=== PATIENT | male | born 1940 | race Caucasian/White ===

== ENCOUNTER 2017-11-16 07:06 | Outpatient (CLI) | payer MEDICARE, OTHER ==
[~2017-11-16] VITALS: Ht 172.7 cm; Wt 68.2 kg
--- NOTE | ~2017-11-16 | HEMODYNAMI ---
PATIENT:GILL CHURCH MEDICAL RECORD: [id number] : 40 LOCATION:DOH ADMISSION DATE: 11/16/17 Generatedon:11/16/20179:15 Patient name: GILL CHURCH Patient #: [id number] SSN: DO B: 1940 Date of study: 11/16/2017 Page: Of Hemodynamic Procedure Report Patient Data Patient Demographics Procedure consent was obtained First Name: GILL Gender: Male Last Name: LYNNETTE : 1940 Patient #: [id number] Age: 77 year(s) Race: Unknown Additional ID: [id number] Contact details Address: [address] [place] [address] State: [place] City: [place] Zip code: [address] Past Medical History Allergies: No known allergies Admission Admission Data Admission Date: 11/16/2017 Admission Time: 7:06 Lab Results Lab Result Date: 11/16/2017 Lab Result Time: 0:00 Biochemistry Name Units Result Min Max BUN mg/dl 21 --(----)-* 7 18 Creatinine mg/dl 1.4 --(----)*- 0.6 1.3 CBC Name Units Result Min Max Hemoglobin g/dl 12.2 *-(----)-- 13.5 17.5 Procedure Procedure Types Cath Procedure Diagnostic Procedure [facility] w/Coronaries PCI Procedure Coronary Stent Coronary Stent Initial Coronary Stent Additional Procedure Description Procedure Date Procedure Date: 11/16/2017 Procedure Start Time: 8:51 Procedure End Time: 9:14 Procedure Staff Name Function Casey Sanders MD Performing Physician Freda Alejandro RT Scrub Keven Tijerina RN Nurse Forest Gray RT Monitor Procedure Data Cath Procedure Fluoroscopy Diagnostic fluoroscopy Total fluoroscopy Time: 7.1 time: 7.1 min min Diagnostic fluoroscopy Total fluoroscopy dose: 815 dose: 815 mGy mGy Contrast Material Contrast Material Type Amount (ml) Isovue 300 132 Entry Location Entry Primary Successful Side Size Upsize Upsize Entry Closure Nj ccessful Closure Location (Fr) 1 (Fr) 2 (Fr) Remarks Device Remarks Radial Right 6 Fr Mechanical artery Short Compression Estimated blood loss: 20 ml Diagnostic catheters Device Type Used For End Catheter Placement DIAGNOSTIC [place] 110cm 5 Procedure Fr catheter ([id number]) Procedure Medications Medication Administration Route Dosage 0.9% NaCl I.V. 100 ml/hr Oxygen etCO2 Nasal cannula 2 l/min Heparin Flush Bag added to field 2 bags (1000units/500ml NS) Lidocaine 2% added to field 20 Radial Cocktail added to field 1 syringe (Verapomil 2mg/Nitro 400mcg/Heparin 1500units) Versed I.V. 1 mg Fentanyl I.V. 50 mcg Versed I.V. 0.5 mg Fentanyl I.V. 25 mcg Radial Cocktail I.A. 1 syringe (Verapomil 2mg/Nitro 400mcg/Heparin 1500units) Heparin Bolus I.V. 4000 units Integrilin (Bolus I.V. 6.2 ml 2mg/ml) Integrilin (Bolus wasted 3.8 ml 2mg/ml) Versed I.V. 0.5 mg Fentanyl I.V. 25 mcg Plavix P.O. 600 mg Hemodynamics Rest HGB: 12.2 (g/dl) Heart Rate: 56 (bpm) Pressure Samples Time Site Value (mmHg) Purpose Heart Use Rate(bpm) 8:54 LV 152/-26,-23 Snapshot 76 Snapshots Pre Cath Intra NCS Post Cath Vital Signs Time Heart Resp SPO2 etCO2 NIBP Rhythm Pain Sedation Rate (ipm) (%) (mmHg) (mmHg) Status Level (bpm) 8:29:51 70 17 99 115/73(94) NSR 0 (11) 10(A) , No pain 8:34:29 67 18 100 29.8 110/72(94) NSR 0 (11) 10(A) , No pain 8:39:08 67 20 100 20.9 118/71(88) NSR 0 (11) 10(A) , No pain 8:43:46 66 15 99 32.8 105/66(86) NSR 0 (11) 10(A) , No pain 8:48:23 66 13 100 0 109/65(79) NSR 0 (11) 10(A) , No pain 8:52:59 64 16 99 32.8 103/59(74) NSR 0 (11) 9(A) , No pain 8:57:36 68 13 98 26.1 99/57(81) NSR 0 (11) 9(A) , No pain 9:02:12 67 15 96 33.6 101/52(77) NSR 0 (11) 9(A) , No pain 9:06:49 65 14 97 0 97/50(68) NSR 0 (11) 10(A) , No pain 9:11:26 67 15 98 20.9 96/44(73) NSR 0 (11) 10(A) , No pain Medications Time Medication Route Dose Verified Delivered Reason Note s Effectiveness by by 8:34:58 0.9% NaCl I.V. 100 Keven Keven Per physician ml/hr Lilliana Tijerina RN RN 8:35:13 Oxygen etCO2 2 l/min Keven Keven Per physician Nasal Lilliana Tijerina cannula RN RN 8:35:24 Heparin Flush added 2 bags Keven Keven used for Bag to Lilliana Tijerina procedure (1000units/500ml field RN RN NS) 8:35:42 Lidocaine 2% added 20ml Keven Keven for local to vial Lorrosy Tijerina anesthetic RN RN 8:36:02 Radial Cocktail added 1 Keven Casey for (Verapomil to syringe Lilliana Sanders MD vasodilation 2mg/Nitro field RN 400mcg/Heparin 1500units) 8:50:12 Versed I.V. 1 mg Keven Keven for sedation Lilliana Tijerina RN RN 8:50:20 Fentanyl I.V. 50 mcg Keven Keven for sedation Lilliana Tijerina RN RN 8:51:18 Radial Cocktail I.A. 1 Keven Casey for (Verapomil syringe Lilliana Sanders MD vasodilation 2mg/Nitro RN 400mcg/Heparin 1500units) 8:53:32 Versed I.V. 0.5 mg Keven Keven for sedation Lilliana Tijerina RN RN 8:54:01 Fentanyl I.V. 25 mcg Keven Keven for sedation Lilliana Tijerina RN RN 9:00:24 Heparin Bolus I.V. 4000 Keven Keven for units Lilliana barnes RN RN 9:00:50 Integrilin I.V. 6.2 ml Keven Keven for (Bolus 2mg/ml) Lorigan Lorigan antiplatelet RN RN therapy 9:01:03 Integrilin wasted 3.8ml Keven Keven to sharp's (Bolus 2mg/ml) Lilliana Tijerina RN RN 9:03:17 Versed I.V. 0.5 mg Keven Keven for sedation Lilliana Tijerina RN RN 9:03:23 Fentanyl I.V. 25 mcg Keven Keven for sedation Lilliana Tijerina RN, RN 9:09:16 Plavix P.O. 600 mg Keven Peña for Lilliana Sanders MD antiplatelet RN therapy Procedure Log Time Note 8:18:55 Freda Counts RT(R) sent for patient. Start room use. 8:18:56 Time tracking: Regular hours (M-F 7:00 - 5:00) 8:19:00 Plan of Care:Hemodynamics will remain stable., Cardiac rhythm will remain stable., Comfort level will be maintained., Respiratory function will remain adequate., Patient/ family verbilizes understanding of procedure., Procedure tolerated without complication., Recovers from procedure without complications.. 8:23:45 Patient received from Pre/Post Procedure Room to CCL 1 Alert and oriented. Tansferred to table in Supine position. 8:23:46 Warm blankets applied, and daniel hugger turned on for patient comfort. 8:23:46 Correct patient and procedure confirmed by team. 8:23:48 Signed procedure consent form obtained from patient. 8:23:48 ECG and BP/O2 sat monitors applied to patient. 8:23:49 Full Disclosure recording started 8:28:58 Vital chart was started 8:29:04 Baseline sample Acquired. 8:29:08 Baseline sample Acquired. 8:29:12 Baseline sample Acquired. 8:29:20 Rhythm: atrial fibrillation 8:29:34 H&P Date Dictated: 11/10/2017 Within 30 days and on chart., H&P Addendum completed by physician on day of procedure. (MUST COMPLETE FOR ALL OUTPATIENTS). 8:29:36 Pre-procedure instructions explained to patient. 8:29:37 Pre-op teaching completed and patient verbalized understanding. 8:29:38 Family in waiting room. 8:29:39 Patient NPO since Midnight. 8:29:44 Patient allergic to No known allergies 8:29:47 Is the patient allergic to Iodine/contrast media? No. 8:29:53 Is patient on blood thinner?No 8:34:58 0.9% NaCl 100 ml/hr I.V. was administered by Keven Tijerina RN; Per physician; 8:35:13 Oxygen 2 l/min etCO2 Nasal cannula was administered by Keven Tijerina RN; Per physician; 8:35:24 Heparin Flush Bag (1000units/500ml NS) 2 bags added to field was administered by Keven Tijerina RN; used for procedure; 8:35:42 Lidocaine 2% 20ml vial added to field was administered by Keven Tijerina RN; for local anesthetic; 8:36:02 Radial Cocktail (Verapomil 2mg/Nitro 400mcg/Heparin 1500units) 1 syringe added to field was administered by Casey Sanders MD; for vasodilation; 8:37:56 Patient diabetic? No. 8:37:59 ----Pre-sedation anethsthesia assessment.---- 8:38:06 Previous problem with sedation/anesthesia? No ? 8:38:09 Snore? Yes 8:38:11 Sleep apnea? No 8:38:13 Deviated septum? No 8:38:15 Opens mouth fully? Yes 8:38:16 Sticks out tongue? Yes 8:38:18 Airway obstruction? No ? 8:38:21 Dentures? No ? 8:38:30 Pre procedure: right dorsailis pedis pulse 2+ Normal; easily identifiable; not easily obliterated 8:38:40 Modified Markell's test Ulnar < 7 seconds 8:38:44 Patient pain scale 0/10 ?. 8:38:53 IV patent on arrival in left wrist with 0.9% NaCl at [facility]. 8:42:53 Lab Result : BUN 21 mg/dl 8:42:53 Lab Result : Creatinine 1.4 mg/dl 8:42:53 Lab Result : Hemoglobin 12.2 g/dl 8:43:07 Lab results completed and on chart. 8:43:14 Right Radial & Right Groin area was prepped with chlora-prep and draped in sterile fashion 8:43:16 Alarms reviewed by R. N. 8:43:16 Sharps counted by scrub and verified by R.N. 8:43:18 Sharps counted by scrub and verified by R.N. 8:43:24 Use device set Radial Dx or PCI 8:43:26 ACIST Syringe (91305) opened to sterile field. 8:43:26 Medline Cath Pack ([id number]) opened to sterile field. 8:43:28 Bag Decanter (2002) opened to sterile field. 8:43:32 DIAGNOSTIC WIRE .035 260cm J wire (527340) opened to sterile field. 8:43:33 ACIST Hand Control (93957) opened to sterile field. 8:43:34 ACIST Manifold (99474) opened to sterile field. 8:43:35 Tegaderm 4 x 4 (1626W) opened to sterile field. 8:44:07 MBrace Wrist Support ([id number]) opened to sterile field. 8:44:19 Zero performed for pressure channel P1 8:48:35 Physician paged 8:48:40 Physician arrived 8:48:40 --------ALL STOP TIME OUT------ 8:48:41 Final Timeout: patient, procedure, and site verified with staff and physician. All members of the team are in agreement. 8:48:45 Right Radial & Right Groin site verified by team. 8:48:52 Physical assessment completed. ASA score P 2 - A patient with mild systemic disease as per Casey Sanders MD. 8:49:00 Sedation plan: IV Moderate Sedation Medication:Versed, Fentanyl 8:49:58 Baseline sample Acquired. 8:50:12 Versed 1 mg I.V. was administered by Keven Tijerina RN; for sedation; 8:50:20 Fentanyl 50 mcg I.V. was administered by Keven Tijerina RN; for sedation; 8:51:18 Radial Cocktail (Verapomil 2mg/Nitro 400mcg/Heparin 1500units) 1 syringe I.A. was administered by Casey Sanders MD; for vasodilation; 8:51:44 Procedure started. 8:51:57 Local anesthetic to right radial artery with Lidocaine 2% by Casey Sanders MD.INITIAL ACCESS ONLY 8:52:15 SHEATH 6Fr Prelude Radial ([id number]) opened to sterile field. 8:52:33 A 6 Fr Short sheath was inserted into the Right Radial artery 8:52:53 A DIAGNOSTIC [place] 110cm 5 Fr catheter (059322) was advanced over the wire and used for Procedure. 8:53:32 Versed 0.5 mg I.V. was administered by Keven Tijerina RN; for sedation; 8:54:01 Fentanyl 25 mcg I.V. was administered by Keven Tijerina RN; for sedation; 8:54:06 LV hemodynamics recorded. 8:54:12 LV gram done using SMITH 8:54:20 EF : 60 % 8:54:48 RCA angiography performed. 8:55:26 Catheter removed. 8:55:37 INFLATOR Merit BasixCompak (TU3746) opened to sterile field. 8:56:08 GUIDE 6FR XBLAD 3.5 catheter (86160020) opened to sterile field. 8:56:43 6 Fr XBLAD 3.5 guide catheter was inserted over the wire 8:57:14 LCA angiography performed. 8:57:20 Proceeding to intervention. 8:58:03 CHOICE PT Extra Support 182cm wire ([id number]) opened to sterile field. 8:59:02 CHOICE wire advanced. 8:59:12 LAD 9:00:24 Heparin Bolus 4000 units I.V. was administered by Keven Tijerina RN; for anticoagulation; 9:00:43 Wire advanced across lesion. 9:00:50 Integrilin (Bolus 2mg/ml) 6.2 ml I.V. was administered by Keven Tijerina RN; for antiplatelet therapy; 9:01:03 Integrilin (Bolus 2mg/ml) 3.8ml wasted was administered by Keven Tijerina RN; to sharp's; 9:02:08 The SHAMAR RX 2.5 x 38 stent ([id number]) was advanced then removed because of failure to cross lesion 9:03:11 Inflate balloon Inflation number: 1 A EUPHORA 2.5 x 30 Balloon ([id number]) was prepped and advanced across the Mid LAD, then inflated to 17 CORTNEY for 0:10 (min:sec). 9:03:17 Versed 0.5 mg I.V. was administered by Keven Tijerina RN; for sedation; 9:03:23 Fentanyl 25 mcg I.V. was administered by Keven Tijerina RN; for sedation; 9:03:32 Inflation number: 2 The EUPHORA 2.5 x 30 Balloon ([id number]) was reinflated across the Mid LAD, to 17 CORTNEY for 0:10 (min:sec). 9:04:04 Balloon removed over the wire. 9:04:55 Place stent Inflation Number: 3 A SHAMAR RX 2.5 x 38 stent ([id number]) was prepped and advanced across the Mid LAD. The stent was deployed at 17 CORTNEY for 0:10 (min:sec). 9:05:59 Stent catheter was removed intact over wire. 9:06:10 Wire redirected to DIAGONAL. 9:07:37 Place stent Inflation Number: 1 A SHAMAR RX 2.5 x 08 stent ([id number]) was prepped and advanced across the 1st Diag. The stent was deployed at 17 CORTNEY for 0:10 (min:sec). 9:08:06 Stent catheter was removed intact over wire. 9:08:09 Wire removed. 9:08:10 Guide catheter removed. 9:09:15 Procedure type changed to Cath procedure, Diagnostic procedure, LHC, LHC w/Coronaries, PCI procedure, Coronary Stent, Coronary Stent Initial, Coronary Stent Additional 9:09:16 Plavix 600 mg P.O. was administered by Casey Sanders MD; for antiplatelet therapy; 9:09:56 TR BAND Standard ([id number]) opened to sterile field. 9:10:19 Sheath removed intact; hemostasis achieved with Mechanical Compression to the Right Radial artery. 9:10:34 Procedure ended.(Physican Out) 9:10:44 Fluoroscopy time 07.10 minutes. 9:10:52 Flurop Dose total: 815 9:10:52 Fluoroscopy dose: 815 mGy 9:10:59 Contrast amount:Isovue 300 132ml. 9:11:02 Sharps counted by scrub and verified by R.N. 9:11:36 TR band inflated with 11cc of air. 9:11:39 Insertion/operative site no bleeding no hematoma. 9:12:00 Post right radial artery:stable 9:12:08 Post Procedure Pulses reassessed and unchanged 9:12:15 Post procedure: right dorsailis pedis pulse 2+ Normal; easily identifiable; not easily obliterated. 9:12:20 Post-procedure physical assessment completed. ASA score P 2 - A patient with mild systemic disease as per Casey Sanders MD. 9:12:25 Post procedure rhythm: sinus rhythm 9:12:31 Estimated blood loss: 20 ml 9:12:34 Post procedure instruction explained to patient.Patient verbalizes understanding. 9:12:35 Patient needs reinforcement of post procedure teaching. 9:12:37 Procedure and supply charges have been captured, reviewed, submitted and are correct. 9:13:51 Vital chart was stopped 9:13:52 See physician's report for complete and final results. 9:13:53 Report given to Pre/Post Procedure Room. 9:13:57 Patient transfered to Pre/Post Procedure Room with Stretcher. 9:14:01 Procedure ended. 9:14:01 Full Disclosure recording stopped 9:14:53 End room use (Document Last) Intervention Summary Intervention Notes Time ActionType Lesion and Equipment Used Action# Pressure Duration Attributes 9:02:08 Discard SHAMAR RX 2.5 x Stent 38 stent ([id number]) 9:03:11 Inflate Mid LAD EUPHORA 2.5 x 1 17 00:10 balloon 30 Balloon ([id number]) 9:03:32 Reinflate Mid LAD EUPHORA 2.5 x 2 17 00:10 balloon 30 Balloon ([id number]) 9:04:55 Place stent Mid LAD SHAMAR RX 2.5 x 3 17 00:10 38 stent ([id number]) 9:07:37 Place stent 1st Diag SHAMAR RX 2.5 x 1 17 00:10 08 stent ([id number]) Device Usage Item Name Manufacture Quantity Catalog Number Hospital Part Current Minimal Lot# / Charge Number Stock Stock Serial# Code ACIST Syringe Acist 1 93105 175664 860263 546135 20 (28302) Medical Systems Inc Medline Cath Cardinal 1 [id number] 367000 77789 833310 5 Pack Health ([id number]) Bag Decanter Microtek 1 2001S 823269 89045 027342 5 (2001S) Medical Inc. DIAGNOSTIC WIRE St Hol[place] 1 430026 095463 475054 748701 30 .035 260cm J wire (073980) ACIST Hand Acist 1 17929 745818 410501 993817 5 Control (19008) Medical Systems Inc ACIST Manifold Acist 1 79468 805925 193548 330537 5 (73395) Medical Systems Inc Tegaderm 4 x 4 3M 1 1626W 192630 344431 615916 5 (1626W) MBrace Wrist Advanced 1 140-0250-00 632045 87936 009929 5 Support Vascular ([id number]) Dynamics SHEATH 6Fr Merit 1 [id number] 250318 101078 937377 5 Prelude Radial Medical ([id number]) DIAGNOSTIC Terumo 1 40-4833 730140 960330 751486 5 [place] 110cm 5 Fr catheter (086694) INFLATOR Merit Merit 1 YM5808 087083 808387 393874 15 BasixCynvec Medical (OD2128) GUIDE 6FR XBLAD Cardinal 1 [id number] 432813 198731 007109 10 3.5 catheter Health (72594000) CHOICE PT Extra [place] 1 [id number] 801900 533800 518643 5 Support 182cm Scientific wire (2142423P6) SHAMAR RX 2.5 x Medtronic 1 [id number] 331875 4149792 663578 5 [id number] 38 stent ([id number]) EUPHORA 2.5 x Medtronic 1 [id number] 525283 776673 078832 5 30 Balloon ([id number]) SHAMAR RX 2.5 x Medtronic 1 [id number] 822460 1269753 053695 5 [id number] 08 stent ([id number]) TR BAND Terumo 1 [id number] 064760 439043 651348 40 Standard ([id number]) Signature [place]it [place] Stage Time Signature Unsigned Intra-Procedure 11/16/2017 Forest Gray 9:15:21 AM RT(R) (CV) Signatures Monitor : Forest Gray RT Signature : Date : Time : [facility] [address] [place] [address]
--- NOTE | ~2017-11-16 | OP ---
PATIENT NAME: GILL CHURCH MEDICAL RECORD: [id number] :40 LOCATION:D.CAT ADMISSION DATE: SURGEON: YANIQUE FINLEY MD DATE OF OPERATION: 11/16/2017 PROCEDURES: 1. PTCA stent LAD. 2. PTCA stent LAD diagonal. 3. Left heart catheterization. 4. Selective coronary angiography. 5. Left ventriculogram. INDICATION: Angina and coronary artery disease. PROCEDURE IN DETAIL: After informed consent was obtained and after a detailed description of risks, benefits as well as alternative therapies, the patient elected to proceed with angiogram and angioplasty. The right radial area was prepped and draped in normal sterile fashion. Right radial artery was cannulated via modified negative with placement of 6-Montserratian sheath. All catheters exchanged through this sheath. FINDINGS: The left ventriculogram was performed in standard 30-degree SMITH view, reveals good cardiac wall motion throughout all segments. Overall ejection fraction estimated 60%. SELECTIVE CORONARY ANGIOGRAPHY: 1. Left main is with no significant angiographic disease. 2. Left anterior descending has 90% stenosis of the diagonal, 95% stenosis of the LAD itself. 3. Left circumflex has moderate irregularities, but no flow-limiting stenosis. 4. Right coronary artery has at least 80% stenosis with pressure damping at the ostium. PTCA STENT OF THE LAD AND LAD DIAGONAL: The LAD was addressed with a 2.5 x 38 mm [place], the diagonal with a 2.5 x 8 mm [place]. Result was 0% residual stenosis. OVERALL IMPRESSION: Successful percutaneous transluminal coronary angioplasty stent of the left anterior descending and diagonal, both going from 90% to 95% initial stenosis to 0% residual. TRANSINT:[id number] Voice Confirmation ID: [id number] DOCUMENT ID: [id number] YANIQUE FINLEY MD at 0956 CC: [id number] DICTATION DATE: 11/16/17 09 CONSTRUCTION CREW MEMBER: 11/16/17 1320 DEP CLI 11/16/[address] [address]
[2017-11-16] MEDS ORDERED: AMBIEN10 MG PO (07:18)
[2017-11-16] MEDS ORDERED: NORVASC5 MG PO (07:18)
[2017-11-16] MEDS ORDERED: XANAX0.25 MG PO (07:18)
[2017-11-16] MEDS ORDERED: HYDROCODONE-APA1 TAB PO (07:18)
[2017-11-16] MEDS ORDERED: CORDARONE200 MG PO (07:19)
[2017-11-16 07:31] VITALS: BP 115/68; Ht 172.7 cm; Wt 68.2 kg
[2017-11-16 07:48] LABS: BASOPHILS 0.7 % (0-2); EOSINOPHILS 3.4 % (0-7); HEMATOCRIT 35.2 % (42.0-54.0); HEMOGLOBIN 12.2 g/dL (13.5-17.5); IMMATURE GRANULOCYTES 0.2 % (0-5); LYMPHOCYTES 15.1 % (15-50); MCH 32.3 pg (26.0-34.0); MCHC 34.7 g/dL (31.0-37.0); MCV 93.1 fL (80.0-100.0); MONOCYTES 17.1 % (2-11); NEUTROPHILS 63.5 % (40-80); PLATELET COUNT 209 10x3/uL (130-400); RBC 3.78 10x6/uL (4.20-6.10)
[2017-11-16 07:55] LABS: ANION GAP 12.4 mmol/L (8-16); CALCIUM 8.6 mg/dL (8.5-10.1); CARBON DIOXIDE 26.7 mmol/L (21.0-32.0); CREATININE - SERUM 1.4 mg/dL (0.6-1.3); POTASSIUM - SERUM 4.1 mmol/L (3.5-5.1)
[2017-11-16] MEDS ORDERED: PLAVIX75 MG PO (09:40)
[2017-11-16] MEDS ORDERED: BAYER CHEWABLE81 MG PO (09:41)
[2017-11-16] MEDS ORDERED: PRAVACHOL40 MG PO (10:41)
== END 2017-11-16 13:30 | disposition home or self-care (01) ==
LOC: D.CATH 07:06
PROVIDERS: Internal Medicine Interventional Cardiology
DX: I25.119 Atherosclerotic heart disease of native coronary artery with unspecified angina pectoris (principal); Z01.812 Encounter for preprocedural laboratory examination
CPT/HCPCS: 93458; C9600; C9601

== ENCOUNTER 2017-11-22 07:02 | Outpatient (CLI) | payer MEDICARE, OTHER ==
[~2017-11-22] VITALS: Ht 172.7 cm; Wt 68.2 kg
--- NOTE | ~2017-11-22 | HP ---
PATIENT: GILL CHURCH MEDICAL RECORD: [id number] ACCOUNT: [id number] LOCATION:YOSEPH : 40 ADMISSION DATE: 11/22/17 HISTORY AND PHYSICAL EXAMINATION ADMITTING DIAGNOSES: 1. Angina. 2. Coronary artery disease. 3. Recent percutaneous transluminal coronary angioplasty stent of LAD diagonal with concomitant disease RCA ostium. 4. Hyperlipidemia. 5. Hypertension. HISTORY OF PRESENT ILLNESS: Mr. Church presents with anginal symptomatology, found to have 2-vessel coronary artery disease of the LAD, diagonal, and RCA, underwent successful PTCA stent of the LAD and LAD diagonal, now brought back for PTCA stent of the RCA. REVIEW OF SYSTEMS: The patient reports easy bruising but reports no swollen glands. The patient reports no fever, no night sweats, no significant weight gain, no significant weight loss. No significant exercise tolerance. The patient reports no dry eyes, no irritation, no vision change. Patient reports no difficulty hearing and no ear pain. Patient reports no frequent nose bleeds or nose and sinus problems. Patient reports on arm pain on exertion. No shortness of breath while lying down. No history of heart murmur. Patient reports no cough, no wheezing or coughing up blood. Patient reports no abdominal pain, no vomiting. Normal appetite. No diarrhea and not vomiting blood. No nausea and no constipation. Patient reports no incontinence. No difficulty urinating. No hematuria. No increased frequency. Patient reports no muscle aches. No weakness, no arthralgias, no back pain. No swelling of the extremities. Patient reports no abnormal mole, no jaundice, no rashes. Reports no loss of consciousness. No weakness and no numbness. No seizures, dizziness, or headaches. The patient reports no depression, no sleep disturbance, feeling safe in a relationship and no alcohol abuse. Patient reports on fatigue. Reports no runny nose or sinus pressure. No itching, no hives, and no frequent sneezing. PHYSICAL EXAMINATION: GENERAL APPEARANCE: Well-nourished, well-developed, appears stated age. Level of distress, comfortable. PSYCHIATRIC: Mental status, alert, normal affect. Orientation, oriented to time, place and person. EYES: Lids and conjunctiva, noninjected. No discharge, no pallor. ENT: Lips, teeth, gums, normal dentition. Oropharynx, no cyanosis, no pallor. NECK: Carotid arteries, bilateral normal upstroke, no bruits, no thrills. JUGULAR VEINS: No jugular venous pressure or distention. CERVICAL LYMPH NODES: Nontender, nonenlarged. THYROID: Not enlarged. Nontender. No nodules. LUNGS: Respiratory effort, unlabored. CHEST: Normal curvature. No thoracic deformity. No chest wall tenderness. Percussion, resonant. Auscultation, clear. No wheezes, no rales, no rhonchi. CARDIOVASCULAR: Precordial exam, nondisplaced. No heaves or pericardial thrills. Rate and rhythm, regular. Heart sounds, normal S1, normal S2. No S3, no gallop, no rub. Systolic murmur, not heard. Diastolic murmur, not heard. EXTREMITIES: No cyanosis, no edema. Peripheral pulses, full and equal in all HISTORY AND PHYSICAL [id number] [place] extremities, except as noted. No bruits appreciated. ABDOMEN: Soft, nondistended. Normal aorta. No bruit. Nontender. No masses. Liver, nontender, no hepatomegaly. Spleen, nontender, no splenomegaly. MUSCULOSKELETAL: No joint tenderness. No joint swelling. No erythema. NEUROLOGICAL: Normal gait, normal strength, normal tone. SKIN: Warm and dry. OVERALL IMPRESSION: Significant disease of the right coronary artery. We will proceed with percutaneous transluminal coronary angioplasty stent of the right coronary artery. TRANSINT:[id number] Voice Confirmation ID: [id number] DOCUMENT ID: [id number] YANIQUE FINLEY MD at 1351 CC: [id number] DICTATION DATE: 11/22/17929 PASSENGER SERVICE REPRESENTATIVE: 11/22/17 1045 [facility] CLI 11/22/17 [place] [id number] [place] [id number]
--- NOTE | ~2017-11-22 | HEMODYNAMI ---
PATIENT:GILL CHURCH MEDICAL RECORD: [id number] : 40 LOCATION:DOH ADMISSION DATE: 11/22/17 Generatedon:11/22/20179:58 Patient name: GILL CHURCH Patient #: [id number] SSN: [id number] : 1940 Date of study: 11/22/2017 Page: Of Hemodynamic Procedure Report Patient Data Patient Demographics Procedure consent was obtained First Name: GILL Gender: Male Last Name: LYNNETTE : 1940 Patient #: [id number] Age: 77 year(s) Race: Unknown SSN: [id number] Additional ID: [id number] Contact details Address: [address] [place] [address] State: [place] City: [place] Zip code: [address] Past Medical History Allergies: No known allergies Admission Admission Data Admission Date: 11/22/2017 Admission Time: 7:02 Arrival Date: 11/22/2017 Arrival Time: 0:00 Admit Source: Other Insurance Payor: Medicare Lab Results Lab Result Date: 11/16/2017 Lab Result Time: 0:00 Biochemistry Name Units Result Min Max BUN mg/dl 21 --(----)-* 7 18 Creatinine mg/dl 1.4 --(----)*- 0.6 1.3 CBC Name Units Result Min Max Hemoglobin g/dl 12.2 *-(----)-- 13.5 17.5 Procedure Procedure Types Cath Procedure PCI Procedure Coronary Stent Coronary Stent Initial Procedure Description Procedure Date Procedure Date: 11/22/2017 Procedure Start Time: 9:44 Procedure End Time: 9:57 Procedure Staff Name Function Casey Sanders MD Performing Physician Jerri Hinojosa RT Monitor Annie Ridley RT Scrub Denny Herman RN Nurse Procedure Data Cath Procedure Fluoroscopy Diagnostic fluoroscopy Total fluoroscopy Time: 2.6 time: 2.6 min min Diagnostic fluoroscopy Total fluoroscopy dose: 159 dose: 159 mGy mGy Contrast Material Contrast Material Type Amount (ml) Isovue 300 47 Entry Location Entry Primary Successful Side Size Upsize Upsize Entry Closure Nj ccessful Closure Location (Fr) 1 (Fr) 2 (Fr) Remarks Device Remarks Radial Right 6 Fr Mechanical artery Short Compression Estimated blood loss: 10 ml Procedure Complications No complications Procedure Medications Medication Administration Route Dosage Oxygen etCO2 Nasal cannula 2 l/min Heparin Flush Bag added to field 2 bags (1000units/500ml NS) 0.9% NaCl I.V. 100 ml/hr Radial Cocktail added to field 1 syringe (Verapomil 2mg/Nitro 400mcg/Heparin 1500units) Fentanyl I.V. 50 mcg Versed I.V. 1 mg Fentanyl I.V. 50 mcg Versed I.V. 1 mg Radial Cocktail I.A. 1 syringe (Verapomil 2mg/Nitro 400mcg/Heparin 1500units) Heparin Bolus I.V. 4000 units Hemodynamics Rest HGB: 12.2 (g/dl) Heart Rate: 10 (bpm) Snapshots Pre Cath Intra NCS Post Cath Vital Signs Time Heart Resp SPO2 etCO2 NIBP (mmHg) Rhythm Pain Sedation Rate (ipm) (%) (mmHg) Status Level (bpm) 9:18:19 44 18 99 29.2 133/92(105) NSR 0 (11) 10(A) , No pain 9:22:22 43 18 100 28.5 124/95(110) NSR 0 (11) 10(A) , No pain 9:26:28 52 17 98 23.2 117/76(95) NSR 0 (11) 10(A) , No pain 9:30:30 59 15 98 0 121/84(97) NSR 0 (11) 10(A) , No pain 9:34:40 58 14 94 0 114/67(80) NSR 0 (11) 9(A) , No pain 9:38:45 59 17 92 0 112/68(81) NSR 0 (11) 9(A) , No pain 9:42:47 58 16 96 35.2 111/74(85) NSR 0 (11) 9(A) , No pain 9:46:53 61 17 98 34.5 115/67(84) NSR 0 (11) 9(A) , No pain 9:51:07 62 16 97 30 108/62(76) NSR 0 (11) 9(A) , No pain 9:55:13 58 16 98 29.2 105/61(83) NSR 0 (11) 9(A) , No pain Medications Time Medication Route Dose Verified Delivered Reason Note s Effectiveness by by 9:18:09 Oxygen etCO2 2 l/min Casey Baldwin Per physician Nasal Tommy Herman RN cannula 9:18:19 Heparin Flush added 2 bags Casey Baldwin used for Bag to Tommy Herman RN procedure (1000units/500ml field NS) 9:18:28 0.9% NaCl I.V. 100 Casey Baldwin Per physician ml/hr Tommy Herman RN 9:18:45 Radial Cocktail added 1 Casey Baldwin used for (Verapomil to syringe Tommy Herman RN procedure 2mg/Nitro field 400mcg/Heparin 1500units) 9:28:40 Fentanyl I.V. 50 mcg Casey Baldwin for sedation Tommy Herman RN 9:28:46 Versed I.V. 1 mg Casey Baldwin for sedation Tommy Herman RN 9:30:55 Fentanyl I.V. 50 mcg Casey Baldwin for sedation Tommy Herman RN 9:30:59 Versed I.V. 1 mg Casey Baldwin for sedation Tommy Herman RN 9:45:13 Radial Cocktail I.A. 1 Casey Peña for (Verapomil syringe Tommy Sanders MD vasodilation 2mg/Nitro 400mcg/Heparin 1500units) 9:46:05 Heparin Bolus I.V. 4000 Casey Baldwin for units Tommy Herman RN anticoagulation Procedure Log Time Note 8:45:05 Annie Ridley RT(R) sent for patient. Start room use. 8:49:30 Informed consent obtained and on chart 8:49:34 Diagnostic Cath Status : Elective 8:51:06 Time tracking: Regular hours (M-F 7:00 - 5:00) 8:51:10 Plan of Care:Hemodynamics will remain stable., Cardiac rhythm will remain stable., Comfort level will be maintained., Respiratory function will remain adequate., Patient/ family verbilizes understanding of procedure., Procedure tolerated without complication., Recovers from procedure without complications.. 9:08:11 Admit Source: Other 9:08:13 Arrival Date: 11/22/2017 12:00:00 AM 9:08:21 Insurance Payor : Medicare 9:11:41 Patient received from Pre/Post Procedure Room to CCL 2 Alert and oriented. Tansferred to table in Supine position. 9:11:42 Warm blankets applied, and daniel hugger turned on for patient comfort. 9:11:42 Correct patient and procedure confirmed by team. 9:11:44 ECG and BP/O2 sat monitors applied to patient. 9:17:13 Vital chart was started 9:17:14 Baseline sample Acquired. 9:17:17 Rhythm: sinus rhythm 9:17:19 Full Disclosure recording started 9:17:22 H&P Date Dictated: 11/22/2017 Within 30 days and on chart., H&P Addendum completed by physician on day of procedure. (MUST COMPLETE FOR ALL OUTPATIENTS). 9:17:24 Pre-procedure instructions explained to patient. 9:17:24 Pre-op teaching completed and patient verbalized understanding. 9:17:26 Family in waiting room. 9:17:27 Patient NPO since Midnight. 9:17:30 Is the patient allergic to Iodine/contrast media? No. 9:17:31 Was the patient premedicated? No 9:17:32 Is patient on blood thinner?Yes 9:17:34 ACC The patient was administered the following blood thiners within the last 24 hours: ACCPlavix 9:17:36 Patient diabetic? No. 9:17:39 Previous problem with sedation/anesthesia? No ? 9:17:40 Snore? Yes 9:17:41 Sleep apnea? No 9:17:42 Deviated septum? No 9:17:43 Opens mouth fully? Yes 9:17:43 Sticks out tongue? Yes 9:17:45 Airway obstruction? No ? 9:18:09 Oxygen 2 l/min etCO2 Nasal cannula was administered by Denny Herman RN; Per physician; 9:18:09 Dentures? No ? 9:18:12 Pre procedure: right dorsailis pedis pulse 1+ Palpable, but thready & weak; easily obliterated 9:18:14 Pre procedure: left dorsailis pedis pulse 1+ Palpable, but thready & weak; easily obliterated 9:18:15 Patient pain scale 0/10 ?. 9:18:19 Heparin Flush Bag (1000units/500ml NS) 2 bags added to field was administered by Denny Herman RN; used for procedure; 9:18:21 IV patent on arrival in left forearm with 0.9% NaCl at [facility]. 9:18:24 Lab results completed and on chart. 9:18:28 0.9% NaCl 100 ml/hr I.V. was administered by Denny Herman RN; Per physician; 9:18:29 Right Radial & Right Groin area was prepped with chlora-prep and draped in sterile fashion 9:18:30 Alarms reviewed by R. N. 9:18:30 Sharps counted by scrub and verified by R.N. 9:18:45 Radial Cocktail (Verapomil 2mg/Nitro 400mcg/Heparin 1500units) 1 syringe added to field was administered by Denny Herman RN; used for procedure; 9:28:08 Physician arrived 9:28:09 --------ALL STOP TIME OUT------ 9:28:10 Final Timeout: patient, procedure, and site verified with staff and physician. All members of the team are in agreement. 9:28:13 Right Radial & Right Groin site verified by team. 9:28:16 Physical assessment completed. ASA score P 2 - A patient with mild systemic disease as per Casey Sanders MD. 9:28:19 Sedation plan: IV Moderate Sedation Medication:Versed, Fentanyl 9:28:40 Fentanyl 50 mcg I.V. was administered by Denny Herman RN; for sedation; 9::46 Versed 1 mg I.V. was administered by Denny Herman RN; for sedation; 9:30:45 Zero performed for pressure channel P1 9:30:55 Fentanyl 50 mcg I.V. was administered by Denny Herman RN; for sedation; 9:30:59 Versed 1 mg I.V. was administered by Denny Herman RN; for sedation; 9:31:02 Use device set Femoral Dx 9:31:30 SHEATH 6Fr Prelude Radial ([id number]) opened to sterile field. 9:31:35 ACIST Syringe (89526) opened to sterile field. 9:31:36 Bag Decanter (2002S) opened to sterile field. 9:31:37 Medline Cath Pack ([id number]) opened to sterile field. 9:31:38 DIAGNOSTIC WIRE .035 260cm J wire (573035) opened to sterile field. 9:31:40 ACIST Hand Control (82059) opened to sterile field. 9:31:40 ACIST Manifold (34884) opened to sterile field. 9:31:42 Tegaderm 4 x 4 (1626W) opened to sterile field. 9:42:29 Procedure started. 9:44:05 Local anesthetic to right radial artery with Lidocaine 2% by Casey Sanders MD.INITIAL ACCESS ONLY 9:44:38 A 6 Fr Short sheath was inserted into the Right Radial artery 9:45:13 Radial Cocktail (Verapomil 2mg/Nitro 400mcg/Heparin 1500units) 1 syringe I.A. was administered by Casey Sanders MD; for vasodilation; 9:45:59 GUIDE 6FR HS I SH catheter ([id number]) opened to sterile field. 9:46:05 Heparin Bolus 4000 units I.V. was administered by Denny Herman RN; for anticoagulation; 9:46:14 6 Fr HS!SH guide catheter was inserted over the wire 9:47:33 Choice PT extra support wire advanced. 9:48:33 CHOICE PT Extra Support 182cm wire ([id number]) opened to sterile field. 9:49:24 Catheter removed. unable to cannulate vessel. 9:50:51 GUIDE 6FR AR 2.0 SH catheter ([id number]) opened to sterile field. 9:51:16 6 Fr AR2SH guide catheter was inserted over the wire 9:51:24 choice pt ex wire advanced. 9:51:34 Wire advanced across lesion. 9:52:17 Place stent Inflation Number: 1 A SHAMAR RX 4.0 x 12 stent ([id number]) was prepped and advanced across the Prox RCA. The stent was deployed at 17 CORTNEY for 0:12 (min:sec). 9:53:48 TR BAND Standard ([id number]) opened to sterile field. 9:54:03 Wire removed. 9:54:03 Guide catheter removed. 9:54:19 Sheath removed intact; hemostasis achieved with Mechanical Compression to the Right Radial artery. 9:54:32 Fluoroscopy time 02.60 minutes. 9:54:37 Flurop Dose total: 159 9:54:37 Fluoroscopy dose: 159 mGy 9:54:42 Contrast amount:Isovue 300 47ml. 9:54:44 Sharps counted by scrub and verified by R.N. 9:54:47 TR band inflated with 12cc of air. 9:54:59 Procedure ended.(Physican Out) 9:55:45 Post right radial artery:stable 9:55:54 Post-procedure physical assessment completed. ASA score P 2 - A patient with mild systemic disease as per Casey Sanders MD. 9:56:01 Post procedure rhythm: unchanged. 9:56:04 Estimated blood loss: 10 ml 9:56:06 Post procedure instruction explained to patient.Patient verbalizes understanding. 9:56:15 Procedure type changed to Cath procedure, PCI procedure, Coronary Stent, Coronary Stent Initial 9:56:18 Procedure and supply charges have been captured, reviewed, submitted and are correct. 9:57:40 Procedure Complication : No complications 9:57:43 Vital chart was stopped 9:57:44 See physician's report for complete and final results. 9:57:46 Report given to Pre/Post Procedure Room. 9:57:50 Patient transfered to Pre/Post Procedure Room with Stretcher. 9:57:52 Procedure ended. 9:57:52 Full Disclosure recording stopped 9:58:12 End room use (Document Last) Intervention Summary Intervention Notes Time ActionType Lesion and Equipment Used Action# Pressure Duration Attributes 9:52:[address] stent Prox RCA SHAMAR RX 4.0 x 1 17 00:12 12 stent ([id number]) Device Usage Item Name Manufacture Quantity Catalog Number Hospital Part Current Minimal Lot# / Charge Number Stock Stock Serial# Code SHEATH 6Fr Merit 1 [id number] 080913 817249 234148 5 Prelude Radial Medical ([id number]) ACIST Syringe Acist 1 05228 425187 094788 214438 20 (23050) [employer] Systems Inc Bag Decanter Microtek 1 405056 61573 655042 5 () Medical Inc. Medline Cath Cardinal 1 [id number] 713894 09238 196255 5 Pack Health ([id number]) DIAGNOSTIC WIRE St Hola 1 948526 818521 285710 521282 30 .035 260cm J wire (863626) ACIST Hand Acist 1 82024 983684 562582 618896 5 Control (53986) Medical Systems Inc ACIST Manifold Acist 1 77177 950178 665588 708066 5 (45681) [employer] Systems Inc Tegaderm 4 x 4 3M 1 1626W 163494 745665 174094 5 (1626W) GUIDE 6FR HS I Medtronic 1 [id number] 460310 00330 552210 1 SH catheter ([id number]) CHOICE PT Extra [place] 1 [id number] 666072 411507 585232 5 Support 182cm Scientific wire ([id number]) GUIDE 6FR AR Medtronic 1 [id number] 797232 33640 260263 1 2.0 SH catheter ([id number]) SHAMAR RX 4.0 x Medtronic 1 [id number] 854987 2706805 747519 5 [id number] 12 stent ([id number]) TR BAND Terumo 1 [id number] 018979 995413 093742 40 Standard ([id number]) Signature Audit [place] Stage Time Signature Unsigned Intra-Procedure 11/22/2017 Jerri Hinojosa 9:58:30 AM RT(R) Signatures Monitor : Jerri Hinojosa Signature : RT Date : Time : [place] [id number] [place] [address]
--- NOTE | ~2017-11-22 | OP ---
PATIENT NAME: GILL CHURCH MEDICAL RECORD: [id number] :40 LOCATION:D.CAT ADMISSION DATE: SURGEON: YANIQUE FINLEY MD DATE OF OPERATION: 11/22/2017 PROCEDURES: 1. PTCA stent RCA. 2. Selective coronary angiography. INDICATION: Angina and coronary artery disease. PROCEDURE IN DETAIL: After informed consent was obtained and after a detailed description of risks, benefits as well as alternative therapies, the patient elected to proceed with angiogram and angioplasty. The right radial area was prepped and draped in normal sterile fashion. Right radial artery was cannulated via modified Seldinger technique with placement of 6-Palauan sheath. All catheters exchanged through this sheath. FINDINGS: The right coronary ostium is 80% to 85% stenosed. This was addressed with a 4.0 x 12 mm Quinn stent. Result was 0% residual stenosis. OVERALL IMPRESSION: Successful percutaneous transluminal coronary angioplasty stent of the right coronary artery going from 80+ percent initial stenosis to 0% residual. TRANSINT:[id number] Voice Confirmation ID: [id number] DOCUMENT ID: [id number] YANIQUE FINLEY MD at 1351 CC: [id number] DICTATION DATE: 11/22/17 0956 PUBLIC RELATIONS COORDINATOR: 11/22/17 1216 [facility] CLI 11/22/17 [place] [id number] [place] [address]
[~2017-11-22 07:02] MED LIST: AMBIEN10 MG PO; BAYER CHEWABLE81 MG PO; CORDARONE200 MG PO; HYDROCODONE-APA1 TAB PO; NORVASC5 MG PO; PLAVIX75 MG PO; PRAVACHOL40 MG PO; XANAX0.25 MG PO
[2017-11-22 07:51] VITALS: BP 148/83; Ht 172.7 cm; Wt 68.2 kg
[2017-11-22 07:58] LABS: BASOPHILS 0.6 % (0-2); EOSINOPHILS 3.8 % (0-7); HEMATOCRIT 36.7 % (42.0-54.0); HEMOGLOBIN 12.8 g/dL (13.5-17.5); IMMATURE GRANULOCYTES 0.4 % (0-5); LYMPHOCYTES 17.9 % (15-50); MCH 32.2 pg (26.0-34.0); MCHC 34.9 g/dL (31.0-37.0); MCV 92.2 fL (80.0-100.0); MEAN PLATELET VOLUME 10.3 fL (7.4-10.4); MONOCYTES 12.9 % (2-11); NEUTROPHILS 64.4 % (40-80); PLATELET COUNT 230 10x3/uL (130-400); RBC 3.98 10x6/uL (4.20-6.10); RDW 13.3 % (11.5-14.5)
[2017-11-22 08:05] LABS: ANION GAP 12.2 mmol/L (8-16); CALCIUM 8.9 mg/dL (8.5-10.1); CARBON DIOXIDE 24.7 mmol/L (21.0-32.0); CREATININE - SERUM 1.2 mg/dL (0.6-1.3); POTASSIUM - SERUM 3.9 mmol/L (3.5-5.1)
== END 2017-11-22 14:00 | disposition home or self-care (01) ==
LOC: D.CATH 07:02
PROVIDERS: Internal Medicine Interventional Cardiology
DX: I25.110 Atherosclerotic heart disease of native coronary artery with unstable angina pectoris (principal); Z01.812 Encounter for preprocedural laboratory examination

== ENCOUNTER 2018-07-07 08:09 | Emergency (ER) | payer MEDICARE, OTHER ==
[~2018-07-07] VITALS: Ht 172.7 cm; Wt 70.5 kg
[2018-07-07 08:15] VITALS: BP 156/99; Ht 172.7 cm; Wt 70.5 kg
[2018-07-07 09:15] LABS: BASOPHILS 0.8 % (0-2); EOSINOPHILS 8.8 % (0-7); HEMATOCRIT 37.1 % (42.0-54.0); HEMOGLOBIN 12.7 g/dL (13.5-17.5); IMMATURE GRANULOCYTES 0.3 % (0-5); LYMPHOCYTES 8.6 % (15-50); MCH 31.4 pg (26.0-34.0); MCHC 34.2 g/dL (31.0-37.0); MCV 91.8 fL (80.0-100.0); MEAN PLATELET VOLUME 10.5 fL (7.4-10.4); MONOCYTES 11.6 % (2-11); NEUTROPHILS 69.9 % (40-80); PLATELET COUNT 213 10x3/uL (130-400); RBC 4.04 10x6/uL (4.20-6.10); RDW 13.4 % (11.5-14.5); WBC 7.5 10x3/uL (4.8-10.8)
[2018-07-07 09:27] LABS: ALBUMIN 3.4 g/dL (3.4-5.0); ANION GAP 9.2 mmol/L (8-16); BILIRUBIN - TOTAL 0.53 mg/dL (0.2-1.3); CALCIUM 8.9 mg/dL (8.5-10.1); CARBON DIOXIDE 29.1 mmol/L (21.0-32.0); CREATININE - SERUM 1.1 mg/dL (0.6-1.3); POTASSIUM - SERUM 4.3 mmol/L (3.5-5.1); PROTEIN - SERUM 7.6 g/dL (6.4-8.2)
== END 2018-07-07 09:45 | disposition home or self-care (01) ==
LOC: D.ER 08:09
PROVIDERS: Emergency Medicine
DX: R20.2 Paresthesia of skin (principal); I10 Essential (primary) hypertension; N42.9 Disorder of prostate, unspecified

== ENCOUNTER 2018-10-10 07:04 | Outpatient (CLI) | payer MEDICARE, OTHER ==
[~2018-10-10] VITALS: Ht 172.7 cm; Wt 68.2 kg
--- NOTE | ~2018-10-10 | HEMODYNAMI ---
PATIENT:GILL CHURCH MEDICAL RECORD: [id number] : 40 LOCATION:DOH ADMISSION DATE: 10/10/18 Generatedon:10/10/201810:26 Patient name: IGLL CHURCH Patient #: [id number] SSN: [id number] : 1940 Date of study: 10/10/2018 Page: Of Hemodynamic Procedure Report Patient Data Patient Demographics Procedure consent was obtained First Name: GILL Gender: Male Last Name: LYNNETTE : 1940 Patient #: [id number] Age: 78 year(s) Race: Unknown SSN: [id number] Additional ID: [id number] Contact details Address: [address] [place] [address] State: [place] City: [place] Zip code: [address] Past Medical History Allergies: No known allergies Admission Admission Data Admission Date: 10/10/2018 Admission Time: 7:04 Lab Results Lab Result Date: 10/10/2018 Lab Result Time: 0:00 Biochemistry Name Units Result Min Max BUN mg/dl 13 --(--*-)-- 7 18 Creatinine mg/dl 1.2 --(---*)-- 0.6 1.3 CBC Name Units Result Min Max Hemoglobin g/dl 13.8 --(*---)-- 13.5 17.5 Procedure Procedure Types Cath Procedure Diagnostic Procedure C [facility] w/Coronaries FFR/IVUS Intra-Coronary IVUS Initial Sedation Charges Moderate Sedation up to 15 minutes PCI Procedure Coronary Stent Coronary Stent Initial Procedure Description Procedure Date Procedure Date: 10/10/2018 Procedure Start Time: 10:06 Procedure End Time: 10:26 Procedure Staff Name Function Casey Sanders MD Performing Physician Freda Alejandro RT Monitor Dilcia Davalos RN Nurse Faye Saez RT Scrub Irvin Enriquez RT Loss Prevention And Safety Manager Procedure Data Cath Procedure Fluoroscopy Diagnostic fluoroscopy Total fluoroscopy Time: 5.8 time: 5.8 min min Diagnostic fluoroscopy Total fluoroscopy dose: 545 dose: 545 mGy mGy Contrast Material Contrast Material Type Amount (ml) Isovue 300 108 Entry Location Entry Primary Successful Side Size Upsize Upsize Entry Closure Nj ccessful Closure Location (Fr) 1 (Fr) 2 (Fr) Remarks Device Remarks Radial Right 6 Fr Mechanical artery Short Compression Estimated blood loss: 5 ml Diagnostic catheters Device Type Used For End Catheter Placement DIAGNOSTIC Paia 110cm 5 LV Angiography Fr catheter ([id number]) DIAGNOSTIC Paia 110cm 5 Left Coronary Fr catheter ([id number]) Angiography DIAGNOSTIC Paia 110cm 5 Right Coronary Fr catheter (318775) Angiography Procedure Complications No complications Procedure Medications Medication Administration Route Dosage Oxygen etCO2 Nasal cannula 2 l/min Lidocaine 2% added to field 20 Heparin Flush Bag added to field 2 bags (1000units/500ml NS) 0.9% NaCl I.V. 100 ml/hr Versed I.V. 2 mg Fentanyl I.V. 50 mcg Versed I.V. 1 mg Fentanyl I.V. 50 mcg Radial Cocktail I.A. 1 syringe (Verapomil 2mg/Nitro 400mcg/Heparin 1500units) Versed I.V. 1 mg Heparin Bolus I.V. 4000 units Integrilin (Bolus I.V. 6.2 ml 2mg/ml) Plavix P.O. 600 mg Hemodynamics Rest HGB: 13.8 (g/dl) Heart Rate: 103 (bpm) Snapshots Pre Cath Intra NCS Post Cath Vital Signs Time Heart Resp SPO2 etCO2 NIBP (mmHg) Rhythm Pain Sedation Rate (ipm) (%) (mmHg) Status Level (bpm) 9:20:42 71 18 100 28.7 127/89(109) NSR 0 (11) 10(A) , No pain 9:24:50 62 17 99 27.2 126/83(103) NSR 0 (11) 10(A) , No pain 9:28:56 78 17 99 24.9 129/82(101) NSR 0 (11) 10(A) , No pain 9:33:04 66 17 98 30.2 125/82(100) NSR 0 (11) 10(A) , No pain 9:37:10 79 18 98 16.6 122/83(99) NSR 0 (11) 10(A) , No pain 9:41:15 53 20 99 24.9 119/78(102) NSR 0 (11) 10(A) , No pain 9:45:21 64 18 97 25.7 111/74(94) NSR 0 (11) 10(A) , No pain 9:49:22 71 18 98 30.2 115/79(92) NSR 0 (11) 10(A) , No pain 9:53:26 48 16 98 32.5 116/77(100) NSR 0 (11) 10(A) , No pain 9:57:34 59 15 100 14.3 100/67(85) NSR 0 (11) 10(A) , No pain 10:01:38 66 16 100 8.3 111/67(79) NSR 0 (11) 10(A) , No pain 10:05:44 58 14 100 2.2 106/67(77) NSR 0 (11) 9(A) , No pain 10:10:02 67 18 98 28.7 93/37(77) NSR 0 (11) 9(A) , No pain 10:14:04 70 15 99 30.2 98/59(83) NSR 0 (11) 9(A) , No pain 10:18:07 68 15 99 30.2 99/57(77) NSR 0 (11) 9(A) , No pain 10:22:11 69 17 99 31 103/60(75) NSR 0 (11) 10(A) , No pain Medications Time Medication Route Dose Verified Delivered Reason Not es Effectiveness by by 9:26:15 Oxygen etCO2 2 l/min Casey Ha used for Nasal Tommy Davalos RN procedure cannula 9:26:26 Lidocaine 2% added 20ml Casey Peña for local to vial Tommy Sanders MD anesthetic field 9:26:34 Heparin Flush added 2 bags Casey Peña used for Bag to Tommy Sanders MD procedure (1000units/500ml field NS) 9:26:42 0.9% NaCl I.V. 100 Casey Ha Per physician ml/hr Tommy Davalos RN 10:04:10 Versed I.V. 2 mg Casey Ha for sedation Tommy Davalos RN 10:04:18 Fentanyl I.V. 50 mcg Casey Ha for sedation Tommy Davalos RN 10:07:16 Versed I.V. 1 mg Casey Ha for sedation Tommy Davalos RN 10:07:20 Fentanyl I.V. 50 mcg Casey Ha for sedation Tommy Davalos RN 10:08:40 Radial Cocktail I.A. 1 Casey lópez (Verapomil syringe Tommy Sanders MD vasodilation 2mg/Nitro 400mcg/Heparin 1500units) 10:11:46 Versed I.V. 1 mg Casey Ha for sedation Tommy Davalos RN 10:17:48 Heparin Bolus I.V. 4000 Casey Ha for chacha ified units Tommy Davalos RN anticoagulation with dr sanders 10:19:22 Integrilin I.V. 6.2 ml Casey lópez was ricarda (Bolus 2mg/ml) Tommy Davalos RN antiplatelet 3.8 ml therapy of vial 10:24:44 Plavix P.O. 600 mg Casey Davalos RN antiplatelet therapy Procedure Log Time Note 8:41:17 Time tracking: Regular hours (M-F 7:00 - 5:00) 8:41:22 Plan of Care:Hemodynamics will remain stable., Cardiac rhythm will remain stable., Comfort level will be maintained., Respiratory function will remain adequate., Patient/ family verbilizes understanding of procedure., Procedure tolerated without complication., Recovers from procedure without complications.. 9:10:25 Irvin Enriquez RT(R) sent for patient. Start room use. 9:13:04 Patient received from Pre/Post Procedure Room to CCL 1 Alert and oriented. Tansferred to table in Supine position. 9:13:05 Warm blankets applied, and daniel hugger turned on for patient comfort. 9:13:06 Correct patient and procedure confirmed by team. 9:13:07 Signed procedure consent form obtained from patient. 9:13:08 ECG and BP/O2 sat monitors applied to patient. 9:13:09 Full Disclosure recording started 9:19:44 Baseline sample Acquired. 9:19:44 Vital chart was started 9:19:56 Rhythm: sinus rhythm 9:20:12 H&P Date Dictated: 10/10/2018 Within 30 days and on chart.. 9:20:13 Pre-procedure instructions explained to patient. 9:20:13 Pre-op teaching completed and patient verbalized understanding. 9:20:15 Family in waiting room. 9:20:17 Patient NPO since Midnight. 9:20:25 Patient allergic to No known allergies 9:20:27 Is the patient allergic to Iodine/contrast media? No. 9:20:32 Is patient on blood thinner?No 9:20:34 Patient diabetic? No. 9:20:35 ----Pre-sedation anethsthesia assessment.---- 9:20:38 Previous problem with sedation/anesthesia? No ? 9:20:39 Snore? Yes 9:20:41 Sleep apnea? No 9:20:42 Deviated septum? No 9:20:43 Opens mouth fully? Yes 9:20:45 Sticks out tongue? Yes 9:20:48 Airway obstruction? No ? 9:20:50 Dentures? No ? 9:20:53 Pre procedure: right dorsailis pedis pulse 2+ Normal; easily identifiable; not easily obliterated 9:20:58 Modified Markell's test Ulnar < 7 seconds 9:21:00 Patient pain scale 0/10 ?. 9:21:18 IV patent on arrival in left forearm with 0.9% NaCl at 10ml/hr. 9:22:58 Lab Result : BUN 13 mg/dl 9:22:58 Lab Result : Creatinine 1.2 mg/dl 9:22:58 Lab Result : Hemoglobin 13.8 g/dl 9:23:07 Lab results completed and on chart. 9:23:10 Right Radial & Right Groin area was prepped with chlora-prep and draped in sterile fashion 9:23:11 Alarms reviewed by R. N. 9:23:12 Sharps counted by scrub and verified by R.N. 9:23:17 Use device set Radial Dx or PCI 9:23:18 ACIST Syringe (21831) opened to sterile field. 9:23:19 Medline Cath Pack ([id number]) opened to sterile field. 9:23:20 Bag Decanter (2002) opened to sterile field. 9:23:20 DIAGNOSTIC WIRE .035 260cm J wire (509359) opened to sterile field. 9:23:21 ACIST Hand Control (15047) opened to sterile field. 9:23:22 ACIST Manifold (99448) opened to sterile field. 9:23:23 Tegaderm 4 x 4 (1626W) opened to sterile field. 9:23:26 MBrace Wrist Support ([id number]) opened to sterile field. 9::29 SHEATH 6FR Slender (64-9850) opened to sterile field. 9:26:15 Oxygen 2 l/min etCO2 Nasal cannula was administered by Dilcia Davalos RN; used for procedure; :: Lidocaine 2% 20ml vial added to field was administered by Casey Sanders MD; for local anesthetic; 9::34 Heparin Flush Bag (1000units/500ml NS) 2 bags added to field was administered by Casey Sanders MD; used for procedure; 9::42 0.9% NaCl 100 ml/hr I.V. was administered by Dilcia Davalos RN; Per physician; 10:01:39 Final Timeout: patient, procedure, and site verified with staff and physician. All members of the team are in agreement. 10:01:42 Right Radial & Right Groin site verified by team. 10:01:45 Maximum allowable Isovue 300 dose 300ml. Physician notified. (300ml for normal creatinines. For patients with creatinine of 1.7 or higher multiply weight(kg) x 5 divided by creatinine.) 10:01:49 Fire Safety Assessment: A--An alcohol-based skin anteseptic being used preoperatively., C--Open oxygen or nitrous oxide is being used., D--An ESU, laser, or fiber-optic light is being used. 10:01:52 Physical assessment completed. ASA score P 2 - A patient with mild systemic disease as per Casey Sanders MD. 10:01:55 Sedation plan: IV Moderate Sedation Medication:Versed, Fentanyl 10:03:29 Baseline sample Acquired. 10:04:10 Versed 2 mg I.V. was administered by Dilcia Davalos RN; for sedation; 10:04:18 Fentanyl 50 mcg I.V. was administered by Dilcia Davalos RN; for sedation; 10:06:39 Procedure started. 10:06:48 Local anesthetic to right radial artery with Lidocaine 2% by Casey Sanders MD.INITIAL ACCESS ONLY 10:07:10 A 6 Fr Short sheath was inserted into the Right Radial artery 10:07:16 Versed 1 mg I.V. was administered by Buffie Davalos RN; for sedation; 10:07:20 Fentanyl 50 mcg I.V. was administered by Dilcia Davalos RN; for sedation; 10:07:56 A DIAGNOSTIC Paia 110cm 5 Fr catheter (441363) was advanced over the wire and used for LV Angiography. 10:07:58 Zero performed for pressure channel P1 10:08:40 Radial Cocktail (Verapomil 2mg/Nitro 400mcg/Heparin 1500units) 1 syringe I.A. was administered by Casey Sanders MD; for vasodilation; 10:08:40 LV gram done using SMITH 10:08:44 Injector settings: Ml/sec: 5, Volume: 15, 10:08:59 EF : 65 % 10:09:13 A DIAGNOSTIC Paia 110cm 5 Fr catheter (641901) was advanced over the wire and used for Left Coronary Angiography. 10:10:01 Use device set [facility] PCI 10:10:06 INFLATOR Merit BasixCompak (WM8681) opened to sterile field. 10:10:10 CHOICE PT Extra Support 182cm wire ([id number]) opened to sterile field. 10:10:21 [place] Kimper Eagleye IVUS Catheter (56160V) opened to sterile field. 10:10:30 A DIAGNOSTIC Paia 110cm 5 Fr catheter (298001) was advanced over the wire and used for Right Coronary Angiography. 10:11:24 Catheter removed. 10:11:46 Versed 1 mg I.V. was administered by Dilcia Davalos RN; for sedation; 10:11:50 GUIDE 6FR XBLAD 3.5 catheter (32629649) opened to sterile field. 10:12:09 6 Fr XBLAD 3.5 guide catheter was inserted over the wire 10:12:52 Guide Catheter removed. unable to cannulate vessel. 10:12:58 GUIDE 6FR XBLAD 4.0 catheter (15435407) opened to sterile field. 10:13:27 6 Fr XBLAD 4.0 guide catheter was inserted over the wire 10:14:10 CHOICE PT ES wire advanced. 10:16:03 IVUS catheter advanced over wire. 10:16:07 IVUS pass to LAD lesion performed. 10:17:12 IVUS catheter removed over wire. 10:17:48 Heparin Bolus 4000 units I.V. was administered by Dilcia Davalos RN; for anticoagulation; verified with dr sanders 10:18:39 Procedure type changed to Cath procedure, Diagnostic procedure, LHC, LHC w/Coronaries, FFR/IVUS, Intra-Coronary IVUS Initial, Sedation Charges, Moderate Sedation up to 15 minutes, PCI procedure, Coronary Stent, Coronary Stent Initial 10:19:22 Integrilin (Bolus 2mg/ml) 6.2 ml I.V. was administered by Dilcia Davalos RN; for antiplatelet therapy; wasted 3.8 ml of vial 10:21:03 Place stent Inflation Number: 1 A INTEGRITY RX 3.0 x 18 stent ([id number]) was prepped and advanced across the Mid LAD. The stent was deployed at 21 CORTNEY for 0:06 (min:sec). 10:21:13 Inflation number: 2 The stent balloon was then re-inflated across the Mid LAD to 21 CORTNEY for 0:04 (min:sec). 10:21:37 Stent catheter was removed intact over wire. 10:21:38 Wire removed. 10:21:52 Guide catheter removed. 10:22:05 Sheath removed intact; hemostasis achieved with Mechanical Compression to the Right Radial artery. 10:22:06 Procedure ended.(Physican Out) 10:22:15 Fluoroscopy time 05.80 minutes. 10:22:18 Fluoroscopy dose: 545 mGy 10:22:18 Flurop Dose total: 545 10:22:22 Contrast amount:Isovue 300 108ml. 10:22:24 Sharps counted by scrub and verified by R.N. 10:22:27 TR band inflated with 12cc of air. 10:22:35 TR BAND Standard ([id number]) opened to sterile field. 10:22:39 Insertion/operative site no bleeding no hematoma. 10:22:45 Post right radial artery:stable, clean and dry 10:22:46 Post Procedure Pulses reassessed and unchanged 10:22:48 Post-procedure physical assessment completed. ASA score P 2 - A patient with mild systemic disease as per Casey Sanders MD. 10:22:52 Post procedure rhythm: unchanged. 10:22:55 Estimated blood loss: 5 ml 10:22:56 Post procedure instruction explained to patient.Patient verbalizes understanding. 10:22:56 Patient needs reinforcement of post procedure teaching. 10:23:46 Procedure Complication : No complications 10:23:49 See physician's report for complete and final results. 10:24:44 Plavix 600 mg P.O. was administered by Dilcia Davalos RN; for antiplatelet therapy; 10:25:15 Procedure and supply charges have been captured, reviewed, submitted and are correct. 10:25:48 Vital chart was stopped 10:25:50 Report given to Pre/Post Procedure Room. 10:25:52 Patient transfered to Pre/Post Procedure Room with Stretcher. 10:26:00 Procedure ended. 10:26:00 Full Disclosure recording stopped 10:26:04 End room use (Document Last) Intervention Summary Intervention Notes Time ActionType Lesion and Equipment Action# Pressure Duration Attributes Used 10:21:03 Place stent Mid LAD INTEGRITY RX 1 21 00:06 3.0 x 18 stent ([id number]) 10:21:13 Reinflate Mid LAD INTEGRITY RX 2 21 00:04 stent 3.0 x 18 balloon stent ([id number]) Device Usage Item Name Manufacture Quantity Catalog Number Hospital Part Current Mini mal Lot# / Charge Number Stock Stock Serial# Code ACIST Acist 1 81439 739231 040766 [id number] 20 Syringe Medical (89225) Systems Inc Medline Cath Medline 1 [id number] 791935 77634 027496 5 Pack ([id number]) Bag Decanter Microtek 1 2001S 659853 92531 110728 5 (2001S) Medical Inc. DIAGNOSTIC St [place] 1 418907 404470 158131 405457 30 WIRE .035 260cm J wire (196474) ACIST Hand Acist 1 53609 605458 478903 456463 5 Control Medical (00927) Systems Inc ACIST Acist 1 81382 103554 609471 982332 5 Manifold Medical (85812) Systems Inc Tegaderm 4 x 3M 1 1626W 051882 064275 487196 5 4 (1626W) MBrace Wrist Advanced 1 140-0250-00 098972 06915 858609 5 Support Vascular (801197567) Dynamics SHEATH 6FR Terumo 1 [id number] 061097 108302 615320 5 Slender (80-1060) DIAGNOSTIC Terumo 1 40-1733 364200 125375 635492 5 Paia 110cm 5 Fr catheter (477642) INFLATOR Merit 1 YX1068 662911 842064 428800 15 [place] BasixCompak (YK8032) CHOICE PT Le[place] 1 [id number] 217788 186911 248914 5 Extra Scientific Support 182cm wire ([id number]) [place] 1 62602F 153411 537114 454091 8 Kimper Eagleye IVUS Catheter (34126V) GUIDE 6FR Cardinal 1 08308138 128244 363190 937133 10 XBLAD 3.5 Health catheter (82481378) GUIDE 6FR Cardinal 1 [id number] 080521 036141 697152 3 XBLAD 4.0 Health catheter (08055315) INTEGRITY RX Medtronic 1 [id number] 112300 981532 018871 5 [id number] 3.0 x 18 stent ([id number]) TR BAND Terumo 1 [id number] 638501 622767 665613 40 Standard ([id number]) Signature Audit [place] Stage Time Signature Unsigned Intra-Procedure 10/10/2018 Freda 10:26:18 AM Counts RT(R) Signatures Monitor : Freda Signature : Counts RT Date : Time : [address] [place] [address]
[2018-10-10 07:55] VITALS: BP 140/81; Ht 172.7 cm; Wt 68.2 kg
[2018-10-10 08:09] LABS: BASOPHILS 1.1 % (0-2); EOSINOPHILS 4.8 % (0-7); HEMATOCRIT 39.4 % (42.0-54.0); HEMOGLOBIN 13.8 g/dL (13.5-17.5); IMMATURE GRANULOCYTES 0.2 % (0-5); LYMPHOCYTES 17.7 % (15-50); MCH 31.6 pg (26.0-34.0); MCV 90.2 fL (80.0-100.0); MEAN PLATELET VOLUME 10.6 fL (7.4-10.4); NEUTROPHILS 64.2 % (40-80); PLATELET COUNT 239 10x3/uL (130-400); RBC 4.37 10x6/uL (4.20-6.10); RDW 13.9 % (11.5-14.5); WBC 5.6 10x3/uL (4.8-10.8)
[2018-10-10 08:12] LABS: ANION GAP 9.9 mmol/L (8-16); CALCIUM 8.9 mg/dL (8.5-10.1); CARBON DIOXIDE 28.7 mmol/L (21.0-32.0); CREATININE - SERUM 1.2 mg/dL (0.6-1.3); POTASSIUM - SERUM 3.6 mmol/L (3.5-5.1)
[2018-10-10] MEDS ORDERED: PLAVIX75 MG PO (10:35)
--- NOTE | 2018-10-10 10:45 | NUR ---
2L NC, NO RESP DISTRESS. RIGHT WRIST TR BAND CDI, NO BLEEDING OR HEMATOMA NOTED. NO C/O PAIN OR NAUSEA. VSS. FAMILY AT BEDSIDE, CALL LIGHT WITHIN REACH.
--- NOTE | 2018-10-10 11:15 | NUR ---
SIPPING ON DRINK AND EATING SANDWICH WITH NO C/O NAUSEA. RIGHT WRIST TR BAND CDI, NO BLEEDING OR HEMATOMA NOTED. DENIES ANY NEEDS AT THIS TIME. VSS. WILL CONTINUE TO MONITOR CLOSELY.
--- NOTE | 2018-10-10 11:30 | NUR ---
RESTING COMFORTABLY WITH NO C/O. RIGHT WRIST TR BAND CDI, NO BLEEDING OR HEMATOMA NOTED. DENIES ANY NEEDS. VSS. CALL LIGHT WITHIN REACH.
--- NOTE | 2018-10-10 12:00 | NUR ---
RESTING QUIETLY WITH EYES CLOSED. RIGHT WRIST TR BAND CDI, NO BLEEDING OR HEMATOMA NOTED. NO NEEDS VOICED. VSS. WILL CONTINUE TO MONITOR.
--- NOTE | 2018-10-10 12:30 | NUR ---
PATIENT INTERMITTENTLY RESTING, VSS ON ROOM AIR. RIGHT WRIST TR BAND IN PLACE, NO S/S OF BLEEDING OR HEMATOMA. NO C/O.
--- NOTE | 2018-10-10 13:30 | NUR ---
3CC OF AIR REMOVED FROM TR BAND WITH NO BLEEDING NOTED. VSS. WILL CONTINUE TO MONITOR CLOSELY.
--- NOTE | 2018-10-10 13:50 | NUR ---
3CC OF AIR REMOVED FROM TR BAND WITH NO BLEEDING NOTED.
--- NOTE | 2018-10-10 14:10 | NUR ---
2CC OF AIR REMOVED FROM TR BAND WITH NO BLEEDING NOTED. LEFT PIV D/C'D WITH CATHETER INTACT, BAND AID TO SITE. UP TO BEDSIDE TO GET DRESSED. AMBULATED TO RESTROOM.
--- NOTE | 2018-10-10 14:22 | NUR ---
REMAINING AIR REMOVED FROM TR BAND WITH NO BLEEDING NOTED. DRESSING PLACED TO SITE. DISCHARGE INSTRUCTIONS ALONG WITH PRESCRIPTION FOR PLAVIX AND LIPITOR GIVEN. VERBALIZED UNDERSTANDING.
--- NOTE | 2018-10-10 14:35 | NUR ---
TAKEN OUT VIA WHEELCHAIR BY CATH RELIEF MAP MODELER. LEFT FACILITY WITH FAMILY AND ALL PERSONAL BELONGINGS.
--- NOTE | 2018-10-11 10:05 | OP ---
PATIENT NAME: GILL CHURCH MEDICAL RECORD: [id number] :40 LOCATION:D.CAT ADMISSION DATE: SURGEON: YANIQUE FINLEY MD DATE OF OPERATION: 10/10/2018 DATE OF SERVICE: 10/10/2018 PROCEDURES: 1. PTCA stent LAD. 2. Intravascular ultrasound. 3. Left heart catheterization. 4. Selective coronary angiography. 5. Left ventriculogram. INDICATION: Angina and coronary artery disease. PROCEDURE IN DETAIL: After informed consent was obtained and after a detailed description of the risks, benefits as well as alternative therapies, the patient elected to proceed with angiogram and angioplasty. The right radial area was prepped and draped in normal sterile fashion. Right radial artery was cannulated via modified Seldinger technique with placement of 6-Nepali sheath. All catheters exchanged through this sheath. FINDINGS: The left ventriculogram was performed in standard 30-degree SMITH view, reveals good cardiac wall motion throughout all segments. Overall ejection fraction estimated at 60%. SELECTIVE CORONARY ANGIOGRAPHY: 1. Left main is with no significant angiographic disease. 2. Left anterior descending has previously placed stent that is widely patent. There was, however, greater than 70% stenosis confirmed by intravascular ultrasound prior to the stent. 3. The left circumflex is tortuous, [id number] diffusely diseased, but no flow-limiting stenosis. 4. Right coronary is tortuous, mild diffuse disease, but no flow-limiting stenosis. PTCA STENT OF THE LAD: The stent used was a 3.0 x 18-mm Integrity taken to 21 atmospheres. Result was 0% residual stenosis. OVERALL IMPRESSION: Successful percutaneous transluminal coronary angioplasty stent of the left anterior descending going from greater than 70% initial stenosis to 0% residual. TRANSINT:[id number] Voice Confirmation ID: [id number] DOCUMENT ID: [id number] YANIQUE FINLEY MD at 1005 CC: [id number] DICTATION DATE: 10/10/18 1028 CASING SOAKER: 10/10/18 1110 DEP CLI 10/10/18 [id number] [place] [address]
== END 2018-10-10 14:35 | disposition home or self-care (01) ==
LOC: D.CATH 07:04
PROVIDERS: ATTEND Internal Medicine Interventional Cardiology
DX: I25.119 Atherosclerotic heart disease of native coronary artery with unspecified angina pectoris (principal); Z01.812 Encounter for preprocedural laboratory examination

== ENCOUNTER → 2019-01-03 06:34 | Outpatient (CLI) | payer MEDICARE, OTHER ==
[2018-10-10 07:55] VITALS: BMI 22.8
== END | disposition home or self-care (01) ==
LOC: D.US 01-01 16:00
PROVIDERS: ATTEND Internal Medicine Cardiovascular Disease
DX: I73.9 Peripheral vascular disease, unspecified (principal)

== ENCOUNTER → 2019-08-14 10:00 | Outpatient (CLI) | payer MEDICARE, OTHER ==
[2018-10-10 07:55] VITALS: BMI 22.8
== END | disposition home or self-care (01) ==
LOC: D.US 10:00
PROVIDERS: ATTEND Internal Medicine Cardiovascular Disease
DX: I65.23 Occlusion and stenosis of bilateral carotid arteries (principal)

== ENCOUNTER → 2020-02-05 10:21 | Outpatient (CLI) | payer MEDICARE, OTHER ==
[2018-10-10 07:55] VITALS: BMI 22.8
[2020-02-05 11:17] LABS: CREATININE - SERUM 1.1 mg/dL (0.6-1.3)
== END | disposition home or self-care (01) ==
LOC: D.CT 10:21
PROVIDERS: ATTEND Internal Medicine Cardiovascular Disease
DX: I73.9 Peripheral vascular disease, unspecified (principal)